=== PATIENT | female | born 1965 | race Hispanic/Latino ===

== ENCOUNTER → 2019-04-23 | Outpatient (CLI) | payer OTHER ==
[~2019-04-23] MED LIST: LISINOPRIL10 MG PO; TYLENOL WITH C1 EACH PO
--- NOTE | 2019-04-23 10:07 | Diagnostic Imaging Report ---
EXAMINATION: HIP LEFT 2-3 VW (+/- PELVIS) INDICATION: Hip pain COMPARISON: None FINDINGS: No acute fracture or dislocation. Alignment appears anatomic. Moderate degenerative changes of the left hip joint with joint space narrowing and ossified formation. IMPRESSION: No acute osseous injury. Moderate degenerative changes of the left hip joint. Signed by: Jeffrey Witt MD on 04/23/2019 10:03 AM
--- NOTE | 2019-04-23 10:09 | Diagnostic Imaging Report ---
EXAMINATION: KNEE LEFT THREE VIEWS, ANKLE 3 + VIEWS RIGHT INDICATION: Knee and ankle pain COMPARISON: None FINDINGS: Left knee: No acute fracture or dislocation. Alignment appears anatomic. No substantial joint effusion. No substantial degenerative change. The soft tissues appear unremarkable. Right ankle: No acute fracture or dislocation. The ankle mortise appears intact and symmetric. Mild soft tissue swelling circumferentially at the ankle. No substantial joint effusion. Several small well-corticated loose bodies posteriorly in the ankle joint. Mild Achilles enthesopathy. Small plantar calcaneal spur. IMPRESSION: No acute osseous injury of the left knee. Mild right ankle soft tissue swelling without underlying acute osseous injury. Small well-corticated loose bodies posteriorly in the ankle joint. Mild Achilles enthesopathy and plantar calcaneal spur. Signed by: Jeffrey Witt MD on 04/23/2019 10:05 AM
== END ==
LOC: RAD 08:08
PROVIDERS: ATTEND Family Medicine
DX: M25.571 Pain in right ankle and joints of right foot (principal); M25.552 Pain in left hip

== ENCOUNTER → 2024-11-07 | Day surgery (SDC) | payer OTHER ==
[~2024-11-07] MED LIST changes: +GLYCOPYRROLATE INJ 0.2 MG/ML VIAL ONE; +HYOSCYAMINE SULFATE 0.5 MG/ML INJ ONE; +LIDOCAINE HCL 2% LOCAL INJ 5 ML SDV VIAL INJ ONE; +LOSARTAN POTAS100 MG PO; +PHENTERMINE H37.5 M1; +PROPOFOL IV EMULSION 10 MG/ML 20 ML VIAL ONE; +[UNRECOGNIZED DRUG - OTHER]
[2024-11-07] MEDS: LACTATED RINGER'S 1,000 ML ONE (08:59)
[2024-11-07 11:10] VITALS: BP 121/76; PULSE 87; RESP 17; O2SAT 96
== END | disposition home or self-care (01) ==
LOC: OR 08:32
PROVIDERS: ATTEND Internal Medicine Gastroenterology
DX: Z12.11 Encounter for screening for malignant neoplasm of colon (principal); D12.2 Benign neoplasm of ascending colon; D36.7 Benign neoplasm of other specified sites; K57.30 Diverticulosis of large intestine without perforation or abscess without bleeding; K64.8 Other hemorrhoids; I10 Essential (primary) hypertension; F17.210 Nicotine dependence, cigarettes, uncomplicated; Z01.810 Encounter for preprocedural cardiovascular examination; Z79.85 Long-term (current) use of injectable non-insulin antidiabetic drugs; Z68.35 Body mass index [BMI] 35.0-35.9, adult
CPT/HCPCS: 45385; 93005; J1980; J2003; J2704; J7121; 45378